=== PATIENT | male | born 1990 | race Two or more races ===

== ENCOUNTER 2020-04-07 20:43 | Emergency (ER) | payer MEDICAID ==
[~2020-04-07] VITALS: Ht 167.6 cm; Wt 106.0 kg
[2020-04-07] MEDS ORDERED: PROPARACAINE OPHTH 0.5%, 15ML ONE (20:54)
[2020-04-07] MEDS ORDERED: FLUORESCEIN OPHTHALMIC 1 MG STRIP ONE (20:54)
[2020-04-07] MEDS ORDERED: FLUORESCEIN OPHTHALMIC 1 MG STRIP EACHEYE ONE (21:00)
[2020-04-07] MEDS ORDERED: PROPARACAINE OPHTH 0.5%, 15ML EACHEYE ONE (21:00)
--- NOTE | 2020-04-07 21:04 | NUR ---
Pt comes in with complaints of a foreign body in right eye. 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 Was wearing safty glasses. States that he believes it was a piece of metal. visual acuity done, patient walked back to from 41
[2020-04-07] MEDS ORDERED: GENTAMICIN OPHTH SOLN 0.3%,5ML RIGHTEYE SCH (22:30)
[2020-04-07 22:38] VITALS: BP 146/106
== END 2020-04-07 22:41 | disposition home or self-care (01) ==
LOC: ED 22:00
DX: T15.01XA Foreign body in cornea, right eye, initial encounter (principal); X58.XXXA Exposure to other specified factors, initial encounter; Y93.89 Activity, other specified; Y92.89 Other specified places as the place of occurrence of the external cause; Y99.8 Other external cause status
CPT/HCPCS: 65220; 99284